=== PATIENT | male | born 1945 | race Caucasian/White ===

== ENCOUNTER 2024-04-19 11:57 | Emergency (ER) | payer BC ==
--- NOTE | 2024-04-19 12:44 | ED Physician Documentation ---
PD HPI LOWER EXT INJURY - Stated complaint Stated Complaint: LT LEG PX - Chief complaint Chief Complaint: Wound PD PAST MEDICAL HISTORY - Past Medical History Past Medical History: Yes - Past Surgical History Past Surgical History: Yes - Allergies Allergies/Adverse Reactions: Allergies Allergy/AdvReac Type Severity Reaction Status Date / Time Sulfa (Sulfonamide Allergy Hives Verified 04/19/24 12:09 Antibiotics) - Social History Does the pt smoke?: No Smoking Status: Never smoker Does the pt drink ETOH?: No Does the pt have substance abuse?: No - Immunizations Immunizations are current?: Yes - POLST Patient has POLST: No Results - Vitals Vitals: Vital Signs - 24 hr 04/19/24 12:09 Temperature 36.5 C Heart Rate 78 Respiratory 16 Rate Blood Pressure 140/75 H O2 Saturation 98 Oxygen O2 Source Room air Departure - Departure
[2024-04-19 13:25] LABS: ALBUMIN 3.9 g/dL (3.2-5.5); BILIRUBIN,TOTAL 0.4 mg/dL (0.2-1.0); CALCIUM 9.2 mg/dL (8.5-10.3); POTASSIUM 4.8 mmol/L (3.5-4.5); TOTAL PROTEIN 5.9 g/dL (6.4-8.9)
[2024-04-19] MEDS: levoFLOXacin 250 MG TABLET PO STA (13:47)
--- NOTE | 2024-04-19 14:01 | ED Physician Documentation ---
PD HPI SKIN - Stated complaint Stated Complaint: LT LEG PX - Chief complaint Chief Complaint: Wound - History obtained from History obtained from: Patient - History of Present Illness Timing - onset: How many weeks ago (1-2) Timing - duration: Weeks (1-2) Timing - details: Gradual onset (skin infection left lower leg treated with bactrim and mupirocoin. Improved moderately but not fully during 6 days on the meds. Had culture done few days ago now resulting pseudomonas. He called his PCP and tissue technician with suggestion of quinolone.) PD PAST MEDICAL HISTORY - Past Medical History Past Medical History: Yes - Past Surgical History Past Surgical History: Yes - Present Medications Home Medications: Ambulatory Orders Medication Instructions Recorded Confirmed levoFLOXacin [Levofloxacin] 500 mg PO BID 7 Days #14 tablet 04/19/24 - Allergies Allergies/Adverse Reactions: Allergies Allergy/AdvReac Type Severity Reaction Status Date / Time Sulfa (Sulfonamide Allergy Hives Verified 04/19/24 12:50 Antibiotics) - Social History Does the pt smoke?: No Smoking Status: Never smoker Does the pt drink ETOH?: No Does the pt have substance abuse?: No - Immunizations Immunizations are current?: Yes - POLST Patient has POLST: No PD ED PE NORMAL - Vitals Vital signs reviewed: Yes - General General: Alert and oriented X 3, No acute distress, Well developed/nourished - Derm Derm: Normal color, Warm and dry - Extremities Extremities: Other (left lateral lower leg partial thickness wound with mild yellow crusting base, but mostly pink. There is moderate redness inferior to the area. Mildly tender only. ) - Neuro Neuro: No motor deficit, No sensory deficit Results - Vitals Vitals: Vital Signs - 24 hr 04/19/24 04/19/24 12:09 14:18 Temperature 36.5 C Heart Rate 78 65 Respiratory 16 14 Rate Blood Pressure 140/75 H 116/89 H O2 Saturation 98 99 Oxygen O2 Source Room air - Labs Labs: Laboratory Tests 04/19/24 13:01 Sodium 136 Potassium 4.8 H Chloride 104 Carbon Dioxide 28 Anion Gap 4.0 L BUN 12 Creatinine 1.0 Estimated GFR (MDRD) 72 L Glucose 143 H Calcium 9.2 Total Bilirubin 0.4 AST 23 ALT 26 Alkaline Phosphatase 64 Total Protein 5.9 L Albumin 3.9 Globulin 2.0 L Albumin/Globulin Ratio 2.0 PD Medical Decision Making - ED course Complexity details: reviewed results (Patient has with him printed culture result from recent culture showing pseudomonas, sensitive to quinolones and also bactrim.), considered differential (patient has had skin wound that developed redness and swelling, mild draiinage. Seen by Dermotologist and Walk In clinc with Rx for Bactrim and mupirocin. Culture resulted Pseudomonas and he was directed to come to ER as he [place]. ), d/w patient ED course: the patient has been on Bactrim for leg skin infection for 6 days with moderate improvement. Culture now showing pseudomonas, so seems reasonable to change to Levaquin. His Media Strategist suggested 500 mg BI, at higher dose. This is not u nreasonable for higher skin penetrance. Pt prefers to go with advice from his providers. He had also been Rx Gent topical ointment for the wound. Departure - Departure Disposition: 01 Home, Self Care Clinical Impression: Skin infection Condition: Stable Record reviewed to determine appropriate education?: Yes Prescriptions: levoFLOXacin [Levofloxacin] 500 mg PO BID 7 Days #14 tablet Comments: Stop the sulfamethoxazole trimethoprim (Bactrim). Changed to levofloxacin 500 mg twice a day as suggested by your tissue technician or so. It is actually reasonable choice and is shown as sensitive on the culture report that you have. Start the gentamicin topical as prescribed as well. Stay well-hydrated otherwise. Continue your other medicines with the exception of holding your atorvastatin cholesterol medicine for a week or 2. I sent your prescription to the [facility] pharmacy in [place]. Wound care would include cleansing gently with soap and water or antiseptic and water 2-3 times daily and applying the gentamicin you were prescribed very lightly to the area. Cover with some dressing but it can be open to the air at times. Add the new antibiotic as directed. Recheck if not improved quite well over the next several days to week. Forms: PCP List Discharge Date/Time: 04/19/24 14:17
[2024-04-19 14:28] VITALS: BP 116/89; O2SAT 99
== END 2024-04-19 14:17 | disposition home or self-care (01) ==
LOC: ED 11:57
DX: L08.9 Local infection of the skin and subcutaneous tissue, unspecified (principal); B96.5 Pseudomonas (aeruginosa) (mallei) (pseudomallei) as the cause of diseases classified elsewhere
CPT/HCPCS: 36415; 80053; 99283; A9270

== ENCOUNTER 2024-04-24 11:47 | Emergency (ER) | payer BC ==
--- NOTE | 2024-04-24 13:53 | ED Physician Documentation ---
PD HPI LOWER EXT INJURY - Stated complaint Stated Complaint: RT LEG PX - Chief complaint Chief Complaint: Ext Problem - History obtained from History obtained from: Patient, Family (his family member says the patient seened confused and lethargic when they picked him up at airport last evening, having flown back from [place]. He says did not sleep well over weekend and did not sleep on the plane. Had also pain in right calf. Family concerned about side effect of recent antibiotic.) - History of Present Illness PD HPI LOW EXT INJURY LOCATION: Right, Lower leg, Calf Type of injury: Other (traveled to [facility] and back in past 5 days, with now cramping pain right calf. Concerned about side effect of antibiotic Floxin that he has been on for the past 5 days.). No: Fall, Twist Timing - details: Abrupt onset, Still present Worsened by: Other (walking on it). No: Moving Associated symptoms: Swelling, Other (calf pain with walking) Contributing factors: Other (he flew to [facility] and back in the past 5 days.). No: Anticoagulated Recently seen: Emergency Dept (seen for leg wound infection 6 days ago and Rx Levofloxacin at 500 mg BID at [facility] of his career coach. Also Rx gent topical ointment. The left leg wound is improving well.) Review of Systems Constitutional: denies: Fever, Chills Cardiac: denies: Chest pain / pressure Respiratory: denies: Dyspnea PD PAST MEDICAL HISTORY - Past Medical History Past Medical History: Yes Cardiovascular: High cholesterol, Atrial fibrillation (with Watchman placed without problems, so he has not been on anticaogulants.) GI: GERD HEENT: Other - Past Surgical History Past Surgical History: Yes - Present Medications Home Medications: Ambulatory Orders Medication Instructions Recorded Confirmed levoFLOXacin [Levofloxacin] 500 mg PO BID 7 Days #14 tablet 04/19/24 Apixaban [Eliquis] 5 mg PO BID #60 tablet 04/24/24 - Allergies Allergies/Adverse Reactions: Allergies Allergy/AdvReac Type Severity Reaction Status Date / Time Sulfa (Sulfonamide Allergy Hives Verified 04/24/24 12:08 Antibiotics) - Social History Does the pt smoke?: No Smoking Status: Never smoker Does the pt drink ETOH?: No Does the pt have substance abuse?: No - Immunizations Immunizations are current?: Yes - POLST Patient has POLST: No PD ED PE NORMAL - Vitals Vital signs reviewed: Yes - General General: Alert and oriented X 3, No acute distress, Well developed/nourished - Respiratory Respiratory: No respiratory distress, Clear bilaterally - Derm Derm: Normal color, Warm and dry - Extremities Extremities: Other (the left clay wound is healing and with minimal to no redness nor discharge now, so infection being improved with the Levofloxacin and Gent ointment. right calf with tenderness mid calf and some swelling. Achilles is firm and intact, strong plantarflex. ) - Neuro Neuro: Alert and oriented X 3, No motor deficit, No sensory deficit Results - Vitals Vitals: Vital Signs - 24 hr 04/24/24 04/24/24 12:08 16:31 Temperature 36.6 C 36.9 C Heart Rate 50 L 68 Respiratory 16 16 Rate Blood Pressure 150/85 H 110/62 O2 Saturation 98 94 Oxygen O2 Source Room air - Labs Labs: Laboratory Tests 04/24/24 04/24/24 14:26 14:26 WBC 8.1 RBC 4.56 L Hgb 13.1 L Hct 41.9 L MCV 91.9 MCH 28.7 MCHC 31.3 L RDW 14.3 Plt Count 188 MPV 10.6 Neut # (Auto) 6.9 H Lymph # (Auto) 0.4 L [place] # (Auto) 0.8 Eos # (Auto) 0.0 Baso # (Auto) 0.0 Absolute Nucleated RBC 0.00 Nucleated RBC % 0.0 Sodium 132 L Potassium 4.0 Chloride 97 L Carbon Dioxide 28 Anion Gap 7.0 BUN 16 Creatinine 1.2 Estimated GFR (MDRD) 58 L Glucose 103 Calcium 8.7 Magnesium 1.9 Total Bilirubin 0.8 AST 27 ALT 22 Alkaline Phosphatase 59 Total Creatine Kinase 400 H Total Protein 5.9 L Albumin 3.8 Globulin 2.1 Albumin/Globulin Ratio 1.8 Lipase 48 - Rads (name of study) duplex US right leg Relevant Findings:: Prelim report reviewed (from [employer] is calf DVT. ) PD Medical Decision Making - ED course Complexity details: reviewed results (CK is eleveted mildly at 400s. C/W the calf muslce strain, DVT, or some myositis. But not enough for concern for diffuse myositis from Floxin. ), considered differential (consider calf muscle and achilles pain from side effect of quinolon. But has traveled by plane and has calf pain, so US to eval for DVT. Can get labs to eval for muscle issues in geneeral from the floxin.), d/w patient Reviewed Lab Results: US showing calf DVT. He is having pain and swelling of the leg, so symptomatic calf DVT and discussion/shared decision with pt is to treat for symptoms even though lower risk for PE from calf only. And if did not treat, would want to do serial US in about a week or so to eval for propogation, which is addedd effort so to speak versus the added side effect risk of DOAC. He has been on DOACs in the past, prior to his Watchman for atrial fib, so is familiar. In this case, would anticipate DOAC for presume 3-6 month duration since provoked cause. Departure - Departure Disposition: 01 Home, Self Care Clinical Impression: Right calf pain DVT (deep venous thrombosis) Qualifiers: DVT location: lower extremity Affected thrombotic vein of extremity: calf muscle vein Chronicity: acute Laterality: right Qualified Code(s): I82.461 - Acute embolism and thrombosis of right calf muscular vein Open wound, lower leg Qualifiers: Encounter type: subsequent encounter Laterality: left Qualified Code(s): S81.802D - Unspecified open wound, left lower leg, subsequent encounter AMS (altered mental status) Qualifiers: Altered mental status type: stupor Qualified Code(s): R40.1 - Stupor Condition: Stable Record reviewed to determine appropriate education?: Yes Instructions: ED DVT Prescriptions: Apixaban [Eliquis] 5 mg PO BID #60 tablet Comments: Stay well-hydrated. Simple walking and exercise is okay. I would suggest Tylenol 500 to 650 mg 4 times daily for the next week or so to help with pain as this will likely be sore and in the muscle and leg. You do have a clot in the calf area. Since it is causing pain and such would be actually worth treating. In the calf only is less at risk for going to the lungs but can still be treated for the local effect and symptoms. Start with Eliquis/apixaban 10 mg twice daily for a week and then to 5 mg twice daily. Follow-up with your primary care subsequently for further prescription. Your skin wound on the other leg is looking better. I would continue the levofloxacin antibiotic at a lower dose of just 500 mg once a day for let say 3 more days till this infection seems fully cleared. Continue with the gentamicin ointment topically couple times a day. [facility] in [place]. Forms: PCP List Discharge Date/Time: 04/24/24 16:46
[2024-04-24 14:32] LABS: BASOPHILS % (AUTO) 0.4 %; EOSINOPHILS % (AUTO) 0.1 %; HCT - HEMATOCRIT 41.9 % (42.0-52.0); HGB - HEMOGLOBIN 13.1 g/dL (14.0-18.0); LYMPHOCYTES # (AUTO) 0.4 10^3/uL (1.5-3.5); LYMPHOCYTES % (AUTO) 4.6 %; MEAN CORPUSCULAR HEMOGLOBIN 28.7 pg (27.0-31.0); MEAN CORPUSCULAR HGB CONC 31.3 g/dL (32.0-36.0); MEAN CORPUSCULAR VOLUME 91.9 fL (80.0-94.0); MEAN PLATELET VOLUME 10.6 fL (7.4-11.4); MONOCYTES # (AUTO) 0.8 10^3/uL (0.0-1.0); NEUTROPHILS # (AUTO) 6.9 10^3/uL (1.5-6.6); NEUTROPHILS % (AUTO) 84.5 %; PLT - PLATELET COUNT 188 10^3/uL (130-450); RED BLOOD COUNT 4.56 10^6/uL (4.70-6.10); RED CELL DISTRIBUTION WIDTH 14.3 % (12.0-15.0); WHITE BLOOD COUNT 8.1 x10^3/uL (4.8-10.8)
[2024-04-24] MEDS: ACETAMINOPHEN 500 MG TABLET PO STA (14:33)
[2024-04-24 14:46] LABS: ALBUMIN 3.8 g/dL (3.2-5.5); ALBUMIN/GLOBULIN RATIO 1.8 (1.0-2.2); BILIRUBIN,TOTAL 0.8 mg/dL (0.2-1.0); CALCIUM 8.7 mg/dL (8.5-10.3); CREATININE 1.2 mg/dL (0.6-1.3); MAGNESIUM 1.9 mg/dL (1.7-2.3); TOTAL PROTEIN 5.9 g/dL (6.4-8.9)
[2024-04-24] MEDS: APIXABAN 5 MG TABLET PO STA (16:04)
--- NOTE | 2024-04-24 16:24 | Ultrasound Report ---
PROCEDURE: Duplex Ext Veins Right INDICATIONS: calf pain TECHNIQUE: Real-time imaging, as well as color and pulse Doppler interrogation, were performed of the lower extr emity deep veins from the inguinal ligament to the popliteal fossa. Attempted visualization of the ca lf veins was performed. COMPARISON: None. FINDINGS: There is acute DVT of the right of 2 posterior tibial veins. The deep veins are otherwise n ormally compressible, and free of intraluminal thrombus. Color and pulse Doppler demonstrate normal phasic intraluminal flow. There is normal augmentation response to distal compression maneuver. IMPRESSION: Acute below the knee DVT involving one of two paired posterior tibial veins. No more proximal clot. Reviewed by: Rafael Vallejo MD on 04/24/2024 4:23 PM PDT Approved by: Rafael Vallejo MD on 04/24/2024 4:23 PM PDT Station ID: [id number]
[2024-04-24 16:35] VITALS: BP 110/62; O2SAT 94
== END 2024-04-24 16:46 | disposition home or self-care (01) ==
LOC: ED 11:47
DX: I82.461 Acute embolism and thrombosis of right calf muscular vein (principal); S81.802D Unspecified open wound, left lower leg, subsequent encounter; X58.XXXD Exposure to other specified factors, subsequent encounter; R40.1 Stupor; Z79.01 Long term (current) use of anticoagulants
CPT/HCPCS: 36415; 80053; 82550; 83690; 83735; 85025; 93971; 99284; A9270